=== PATIENT | female | born 1980 | race Two or more races ===

== ENCOUNTER 2020-08-14 13:59 | Emergency (ER) | payer MEDICAID, OTHER ==
[~2020-08-14] VITALS: Ht 160 cm; Wt 90.7 kg
--- NOTE | 2020-08-14 14:35 | NUR ---
Patient discharged to home in stable condition. Written and verbal after care instructions given. Patient verbalizes understanding of instructions. Stressed follow up or return to ER for worsening s/s.PT WALKS IN STEADY GAIT, DENIES ANY DIZZINESS, SOB, PALPITATION AT THIS TIME
== END 2020-08-14 14:36 | disposition home or self-care (01) ==
LOC: ER 13:59
DX: R42 Dizziness and giddiness (principal); R06.02 Shortness of breath
CPT/HCPCS: 93005; A4663